=== PATIENT | female | born 1995 | race Hispanic/Latino ===

== ENCOUNTER 2023-07-09 09:19 | Inpatient (IN) | payer MEDICAID, OTHER, SELFPAY ==
[2023-07-09] MEDS ORDERED: Carboprost 250 MCG/ML AMP IM PRN (09:31)
[2023-07-09] MEDS ORDERED: Promethazine HCl 25 MG/ML VIAL IM PRN ×3 (09:31→18:35)
[2023-07-09] MEDS ORDERED: Diphenoxylate HCl/Atropine Tablet PO PRN (09:31)
[2023-07-09] MEDS ORDERED: Misoprostol 200 MCG TAB PR PRN (09:31)
[2023-07-09] MEDS ORDERED: Lidocaine 1% (PF) 30 ML VIAL SC PRN (09:31)
[2023-07-09] MEDS ORDERED: HYDROcodone/Acetaminophen 5/325 mg Tablet PO PRN (09:31)
[2023-07-09] MEDS ORDERED: Acetaminophen 500 MG TAB PO PRN (09:31)
[2023-07-09] MEDS ORDERED: Ondansetron PF 4 MG/2 ML Vial IVP PRN ×3 (09:31→18:35)
[2023-07-09] MEDS ORDERED: hydrALAZINE 20 MG/ML VIAL SLOW IVP PRN ×2 (09:31→18:35)
[2023-07-09] MEDS ORDERED: Methylergonovine 0.2 MG/ML VIAL IM PRN (09:31)
[2023-07-09] MEDS ORDERED: Tranexamic Acid 1,000 MG/10 ML VIAL IVP PRN (09:31)
[2023-07-09] MEDS ORDERED: fentaNYL 50 mcg/mL 1 mL Vial SLOW IVP PRN (09:31)
[2023-07-09] MEDS ORDERED: Lactated Ringer's 1,000 ML IV SCH (09:45)
[2023-07-09] MEDS ORDERED: Oxytocin 30 units/NS 500 ML 500 ML IV SCH ×2 (09:45)
[2023-07-09 09:56] VITALS: BMI 22.0
[2023-07-09] MEDS: Oxytocin 30 units/NS 500 ML 500 ML IV SCH (10:39)
[2023-07-09 10:51] LABS: Hematocrit 30.8 % (34.9-44.5); Hemoglobin 10.6 g/dL (12.0-15.5); Mean Corpuscular HGB CONC 34.4 g/dL (32.0-36.0); Mean Corpuscular Hemoglobin 33.7 pg (27.0-33.0); Mean Corpuscular Volume 97.8 fl (81.6-98.3); Mean Platelet Volume 12.2 fl (7.4-10.4); Platelet Count 140 10x3/uL (150-450); RBC Distribution Width 13.2 % (11.5-14.5); Red Blood Cell (RBC) Count 3.15 10x6/uL (3.90-5.03); White Blood Cell (WBC) Count 8.4 10x3/uL (3.5-10.5)
[2023-07-09 11:21] LABS: HBsAg Index 0.19 S/CO (0-0.99); Hep B Surf Ag - L&D Non-Reactive S/CO (NonReactive)
[2023-07-09 11:23] LABS: Syphilis Antibody Nonreactive (Nonreactive); Syphilis Antibody Index 0.03 S/CO (<1.00 Non-Reactive)
[2023-07-09] MEDS: fentaNYL/Ropivacaine Epidural 100 ML ONE (11:53)
[2023-07-09] MEDS ORDERED: Moisturizing Cream (Eucerin) 113 GM JAR TOP PRN (13:09)
[2023-07-09] MEDS ORDERED: Naloxone HCl 0.4 mg/ml Vial IVP PRN ×2 (13:09)
[2023-07-09] MEDS ORDERED: Lactated Ringer's 500 ML IV PRN (13:09)
[2023-07-09] MEDS ORDERED: Acetaminophen 325 MG TAB PO PRN (13:09)
[2023-07-09] MEDS ORDERED: ePHEDrine Sulfate 50 MG/10 ML VIAL SLOW IVP PRN (13:09)
[2023-07-09] MEDS ORDERED: diphenhydrAMINE 50 MG/ML VIAL IVP PRN (13:09)
[2023-07-09] MEDS ORDERED: Communication Order-Pharmacy FS SCH (13:15)
[2023-07-09] MEDS ORDERED: fentaNYL 2 mcg/Ropivacaine 0.2% Epidural 100 ML CADD EPIDURAL SCH (13:15)
[2023-07-09] MEDS: Ibuprofen 800 MG TAB PO PRN (18:31)
[2023-07-09] MEDS ORDERED: Milk Of Magnesia 30 ML UDCUP PO PRN (18:35)
[2023-07-09] MEDS ORDERED: diphenhydrAMINE 25 MG CAP PO PRN (18:35)
[2023-07-09] MEDS ORDERED: Lanolin Ointment 7 GM TUBE TOP PRN (18:35)
[2023-07-09] MEDS ORDERED: Bisacodyl 10 MG SUPP PR PRN (18:35)
[2023-07-09] MEDS: Docusate 100 MG CAP PO SCH (20:51)
[2023-07-09] MEDS: HYDROcodone/Acetaminophen 5/325 mg Tablet PO PRN (21:51)
[2023-07-09] MEDS ORDERED: Ibuprofen 800 MG TAB PO SCH (22:00)
[2023-07-10] MEDS: Ibuprofen 800 MG TAB PO SCH (02:05)
[2023-07-10] MEDS: Prenatal Vitamin 1 TAB PO SCH (07:51)
[2023-07-10] MEDS: Ferrous Sulfate 325 MG TAB PO SCH (08:00)
[2023-07-10] MEDS ORDERED: Bupivacaine 0.25% HCL 30 ML VIAL ONE (16:06)
[2023-07-11] MEDS: Boostrix 0.5 ML (Tdap) VIAL (>/=7 yrs of age) IM ONE (08:55)
[2023-07-11 10:47] VITALS: BP 94/62; TEMP 98
== END 2023-07-11 10:40 | disposition home or self-care (01) | DRG 807 ==
LOC: CSHLD 09:19 → CSHPP 19:45
PROVIDERS: ADMIT Family Medicine; ATTEND Family Medicine
PROC: 10E0XZZ Delivery of Products of Conception, External Approach (ICD-10-PCS; principal; 2023-07-09)
PROC: 10907ZC Drainage of Amniotic Fluid, Therapeutic from Products of Conception, Via Natural or Artificial Opening (ICD-10-PCS; 2023-07-09)
DX: O80 Encounter for full-term uncomplicated delivery (principal); Z37.0 Single live birth; Z3A.39 39 weeks gestation of pregnancy
CPT/HCPCS: 36415; 85027; 86780; 86850; 86900; 86901; 87340; J0665; J2590